=== PATIENT | female | born 1995 | race Two or more races ===

== ENCOUNTER 2019-05-11 07:48 | Emergency (ER) | payer OTHER ==
[~2019-05-11] VITALS: Ht 152.4 cm; Wt 72.6 kg
[2019-05-11 07:51] VITALS: BP 134/75
--- NOTE | 2019-05-11 08:06 | NUR ---
AJAY BOWER,HOUSE SUP CALLED TO HAVE MD FOR SOURCE ORDER THE BODY FLUID EXPOSURE PANEL PER DR HE
--- NOTE | 2019-05-11 08:22 | NUR ---
Patient discharged to home in stable condition. Written and verbal after care instructions given. Patient verbalizes understanding of instruction.
[2019-05-12 08:08] LABS: HIV SCRN 4G wRFX Non Reactive (Non Reactive)
== END 2019-05-11 08:23 | disposition home or self-care (01) ==
LOC: ER 07:51
DX: T14.8XXA Other injury of unspecified body region, initial encounter (principal); Z88.8 Allergy status to other drugs, medicaments and biological substances; W46.0XXA Contact with hypodermic needle, initial encounter; Y93.89 Activity, other specified; Y92.89 Other specified places as the place of occurrence of the external cause; Y99.0 Civilian activity done for income or pay
CPT/HCPCS: 36415; 86706; 86803; 87340

== ENCOUNTER 2019-09-16 17:21 | Emergency (ER) | payer BC, OTHER ==
[~2019-09-16] VITALS: Ht 157.5 cm; Wt 66.7 kg
--- NOTE | 2019-09-16 18:23 | NUR ---
COVID AND RAPID STREP DONE. SENT TO LAB
--- NOTE | 2019-09-16 18:49 | NUR ---
Patient discharged to home in stable condition. Written and verbal after care instructions given. Patient verbalizes understanding of instruction.
[2019-09-16 18:50] VITALS: BP 121/68
== END 2019-09-16 18:51 | disposition home or self-care (01) ==
LOC: ER 17:23
DX: J02.9 Acute pharyngitis, unspecified (principal); Z20.828 Contact with and (suspected) exposure to other viral communicable diseases
CPT/HCPCS: 86403-TC

== ENCOUNTER 2020-05-09 08:25 | Emergency (ER) | payer BC, OTHER ==
[~2020-05-09] VITALS: Ht 165.1 cm; Wt 70.8 kg
[2020-05-09 08:32] VITALS: BP 134/81
--- NOTE | 2020-05-11 16:14 | NUR ---
PT MADE AWARE OF POSITIVE COVID RESULTS.
== END 2020-05-09 11:58 | disposition home or self-care (01) ==
LOC: ER 08:28
DX: U07.1 COVID-19 (principal); R43.8 Other disturbances of smell and taste
CPT/HCPCS: 99283; C9803; U0003

== ENCOUNTER 2020-06-05 09:13 | Emergency (ER) | payer BC, OTHER, MEDICAID ==
[~2020-06-05] VITALS: Ht 154.9 cm; Wt 65.8 kg
[2020-06-05 09:36] VITALS: BP 140/79
--- NOTE | 2020-06-05 10:39 | NUR ---
COVID SWAB AND STREP SWAB DONE AND SENT TO LAB. Patient discharged to home in stable condition. Written and verbal after care instructions given. Patient verbalizes understanding of instruction.
--- NOTE | 2020-06-12 17:36 | NUR ---
PHONE NUMBER ON-FILE CALLED, UNABLE TO LEAVE A MESSAGE
== END 2020-06-05 10:41 | disposition home or self-care (01) ==
LOC: ER 09:23
DX: J02.9 Acute pharyngitis, unspecified (principal); R59.0 Localized enlarged lymph nodes; Z86.16 Personal history of COVID-19
CPT/HCPCS: 87070; 87880; 99283; C9803; U0003; 86403-TC

== ENCOUNTER 2020-08-14 14:11 | Outpatient (CLI) | payer BC, MEDICAID ==
[2020-08-14 15:27] LABS: BASOPHILS % (AUTO) 0.2 % (0.0-2.0); EOSINOPHILS % (AUTO) 1.6 % (0.0-6.0); HEMATOCRIT 43 % (33-45); HEMOGLOBIN 14.1 g/dL (11.5-14.8); LYMPHOCYTES # (AUTO) 2.9 /CMM (0.8-4.8); LYMPHOCYTES % (AUTO) 37.5 % (20.0-44.0); MEAN CORPUSCULAR HGB CONC 33 g/dl (31.0-36.0); MEAN CORPUSCULAR VOLUME 92 fL (82-100); MONOCYTES # (AUTO) 0.6 /CMM (0.1-1.30); MONOCYTES % (AUTO) 7.9 % (2.0-12.0); NEUTROPHILS # (AUTO) 4.1 /CMM (1.8-8.9); NEUTROPHILS % (AUTO) 52.8 % (43.0-81.0); PLATELET COUNT (AUTO) 265 /CMM (150-450); RED BLOOD CELL COUNT(AUTO) 4.63 MIL/uL (4.0-5.2); WHITE BLOOD COUNT (AUTO) 7.7 K/uL (4.3-11.0)
[2020-08-14 15:48] LABS: BILIRUBIN,URINE NEGATIVE (NEGATIVE); COLOR,URINE YELLOW (YELLOW); LEUKOCYTE ESTERASE ,URINE TRACE (NEGATIVE); NITRITE, URINE NEGATIVE (NEGATIVE); PH,URINE 6.5 (5.0-8.0); PROTEIN,URINE NEGATIVE (NEGATIVE); UGLUCOSE NEGATIVE (NEGATIVE); UROBILINOGEN,URINE 0.2 EU/dL (0.2)
[2020-08-14 15:50] LABS: BACTERIA,URINE 2+ /HPF (None Seen); FREE T4 (FREE THYROXINE) 0.84 ng/dL (0.76-1.46); THYROID STIMULATING HORMONE 8.047 uIU/mL (0.358-3.74); WBC,URINE 21-50 /HPF (0-3)
[2020-08-14 15:51] LABS: MUCUS,URINE Few /LPF (None Seen); SQUAMOUS EPITHELIAL CELL,UR Moderate /HPF (None Seen); URINE AMORPHOUS URATE Few /HPF (None Seen)
[2020-08-14 16:07] LABS: ALBUMIN 3.7 g/dL (3.4-5.0); BILIRUBIN,TOTAL 0.1 mg/dL (0.2-1.0); CALCIUM, SERUM 9.1 mg/dL (8.5-10.1); CREATININE 0.7 mg/dL (0.6-1.3); POTASSIUM 3.7 mmol/L (3.5-5.1); TOTAL PROTEIN, SERUM 7.4 g/dL (6.4-8.2)
[2020-08-15 11:07] LABS: FOLLICLE STIMULATION HORMONE 11.7 mIU/mL (.); LUTEINIZING HORMONE 18.6 mIU/mL (.)
[2020-08-15 12:07] LABS: PROLACTIN 14.2 ng/mL (4.8-23.3)
== END 2020-08-14 23:59 | disposition home or self-care (01) ==
LOC: LAB 14:11
PROVIDERS: ATTEND Legal Medicine
DX: I10 Essential (primary) hypertension (principal); E11.9 Type 2 diabetes mellitus without complications; E03.9 Hypothyroidism, unspecified; E78.00 Pure hypercholesterolemia, unspecified; D64.9 Anemia, unspecified; E55.9 Vitamin D deficiency, unspecified; Z00.00 Encounter for general adult medical examination without abnormal findings
CPT/HCPCS: 80053-TC; 80061-TC; 81001; 82306; 82607-TC; 82626; 82670; 82728-TC; 83001; 83002; 83540-TC; 84146; 84402; 84403; 84439-TC; 84443-TC; 85025-TC; 86592; 86694; 87086-TC; 87186-TC; 87491; 87591; 87806

== ENCOUNTER 2020-08-23 07:38 | Outpatient (CLI) | payer BC, MEDICAID ==
[2020-08-24 03:07] LABS: T3, FREE 3.3 pg/mL (2.0-4.4); THYROID PEROXIDASE (TPO) AB <9 IU/mL (0-34)
== END 2020-08-23 23:59 | disposition home or self-care (01) ==
LOC: LAB 07:38
PROVIDERS: ATTEND Legal Medicine
DX: E04.1 Nontoxic single thyroid nodule (principal)
CPT/HCPCS: 36415; 76536-TC; 84481; 86376; 86800

== ENCOUNTER 2021-01-08 12:05 | Outpatient (CLI) | payer BC, MEDICAID ==
[2021-01-09 07:07] LABS: FOLLICLE STIMULATION HORMONE 11.1 mIU/mL (.); LUTEINIZING HORMONE 4.2 mIU/mL (.); PROLACTIN 31.3 ng/mL (4.8-23.3)
== END 2021-01-08 23:59 | disposition home or self-care (01) ==
LOC: LAB 12:05
PROVIDERS: ATTEND Obstetrics & Gynecology
DX: N92.6 Irregular menstruation, unspecified (principal)
CPT/HCPCS: 36415; 83001; 83002; 84146

== ENCOUNTER 2021-02-13 11:53 | Outpatient (CLI) | payer BC, MEDICAID | END 2021-02-13 23:59 | disposition home or self-care (01) | LOC: MRI 11:53 | PROVIDERS: ATTEND Legal Medicine | DX: D35.2 Benign neoplasm of pituitary gland (principal) | CPT/HCPCS: 70551-TC ==

== ENCOUNTER 2021-02-24 07:57 | Outpatient (CLI) | payer BC, OTHER ==
[2021-02-24 09:01] LABS: ALBUMIN 3.6 g/dL (3.4-5.0); BILIRUBIN,TOTAL 0.2 mg/dL (0.2-1.0); CALCIUM, SERUM 8.3 mg/dL (8.5-10.1); CREATININE 0.6 mg/dL (0.6-1.3); POTASSIUM 4.3 mmol/L (3.5-5.1); TOTAL PROTEIN, SERUM 7.1 g/dL (6.4-8.2)
== END 2021-02-24 23:59 | disposition home or self-care (01) ==
LOC: LAB 07:57
PROVIDERS: ATTEND Legal Medicine
DX: R53.1 Weakness (principal)
CPT/HCPCS: 36415; 80053-TC

== ENCOUNTER 2021-03-24 12:30 | Outpatient (CLI) | payer BC, OTHER ==
[2021-03-24] MEDS ORDERED: GADOTERATE MEGLUMINE 5 MMOL/10 ML VIAL IV ONE (12:31)
== END 2021-03-24 23:59 | disposition home or self-care (01) ==
LOC: MRI 12:30
PROVIDERS: ATTEND Legal Medicine
DX: D33.2 Benign neoplasm of brain, unspecified (principal)
CPT/HCPCS: 70553; A9575

== ENCOUNTER 2021-03-28 09:50 | Outpatient (CLI) | payer BC, OTHER ==
[2021-03-28 10:42] LABS: BASOPHILS % (AUTO) 0.3 % (0.0-2.0); EOSINOPHILS % (AUTO) 1.1 % (0.0-6.0); HEMATOCRIT 41 % (33-45); HEMOGLOBIN 13.7 g/dL (11.5-14.8); LYMPHOCYTES # (AUTO) 3.6 K/uL (0.8-4.8); LYMPHOCYTES % (AUTO) 33.3 % (20.0-44.0); MEAN CORPUSCULAR HGB CONC 34 g/dl (31.0-36.0); MEAN CORPUSCULAR VOLUME 92 fL (82-100); MONOCYTES # (AUTO) 0.8 K/uL (0.1-1.30); MONOCYTES % (AUTO) 7.5 % (2.0-12.0); NEUTROPHILS # (AUTO) 6.2 K/uL (1.8-8.9); NEUTROPHILS % (AUTO) 57.8 % (43.0-81.0); PLATELET COUNT (AUTO) 261 K/uL (150-450); RED BLOOD CELL COUNT(AUTO) 4.43 MIL/uL (4.0-5.2); WHITE BLOOD COUNT (AUTO) 10.7 K/uL (4.3-11.0)
[2021-03-28 11:36] LABS: BILIRUBIN,TOTAL 0.2 mg/dL (0.2-1.0); CREATININE 0.7 mg/dL (0.6-1.3); POTASSIUM 3.7 mmol/L (3.5-5.1); TOTAL PROTEIN, SERUM 7.9 g/dL (6.4-8.2)
[2021-03-28 11:46] LABS: THYROID STIMULATING HORMONE 4.369 uIU/mL (0.358-3.74)
[2021-03-29 09:07] LABS: PROLACTIN 13.5 ng/mL (4.8-23.3); THYROID PEROXIDASE (TPO) AB <8 IU/mL (0-34)
== END 2021-03-28 23:59 | disposition home or self-care (01) ==
LOC: LAB 09:50
PROVIDERS: ATTEND Internal Medicine Endocrinology, Diabetes & Metabolism
DX: E03.9 Hypothyroidism, unspecified (principal); D64.9 Anemia, unspecified; E66.9 Obesity, unspecified
CPT/HCPCS: 36415; 80053-TC; 80061-TC; 84146; 84439-TC; 84443-TC; 85025-TC; 86376

== ENCOUNTER 2021-07-17 08:40 | Outpatient (CLI) | payer BC, OTHER ==
[2021-07-17 09:45] LABS: BASOPHILS % (AUTO) 0.2 % (0.0-2.0); EOSINOPHILS % (AUTO) 0.6 % (0.0-6.0); HEMATOCRIT 38 % (33-45); HEMOGLOBIN 12.7 g/dL (11.5-14.8); LYMPHOCYTES % (AUTO) 27.5 % (20.0-44.0); MEAN CORPUSCULAR HGB CONC 33 g/dl (31.0-36.0); MEAN CORPUSCULAR VOLUME 91 fL (82-100); MONOCYTES # (AUTO) 0.5 K/uL (0.1-1.30); MONOCYTES % (AUTO) 7.3 % (2.0-12.0); NEUTROPHILS # (AUTO) 4.7 K/uL (1.8-8.9); NEUTROPHILS % (AUTO) 64.4 % (43.0-81.0); PLATELET COUNT (AUTO) 257 K/uL (150-450); WHITE BLOOD COUNT (AUTO) 7.2 K/uL (4.3-11.0)
[2021-07-17 10:44] LABS: ALBUMIN 3.5 g/dL (3.4-5.0); BILIRUBIN,TOTAL 0.2 mg/dL (0.2-1.0); CALCIUM, SERUM 8.9 mg/dL (8.5-10.1); CREATININE 0.7 mg/dL (0.6-1.3); POTASSIUM 3.9 mmol/L (3.5-5.1); TOTAL PROTEIN, SERUM 6.9 g/dL (6.4-8.2)
[2021-07-17 14:40] LABS: THYROID STIMULATING HORMONE 2.717 uIU/mL (0.358-3.74)
[2021-07-17 18:03] LABS: FREE T4 (FREE THYROXINE) 1.02 ng/dL (0.76-1.46)
[2021-07-18 05:07] LABS: PROLACTIN 12.6 ng/mL (4.8-23.3)
== END 2021-07-17 23:59 | disposition home or self-care (01) ==
LOC: LAB 08:40
PROVIDERS: ATTEND Internal Medicine Endocrinology, Diabetes & Metabolism
DX: E78.00 Pure hypercholesterolemia, unspecified (principal); D64.9 Anemia, unspecified; E88.81 Metabolic syndrome and other insulin resistance; E05.90 Thyrotoxicosis, unspecified without thyrotoxic crisis or storm
CPT/HCPCS: 36415; 80053-TC; 80061-TC; 82306; 84146; 84439-TC; 84443-TC; 85025-TC